=== PATIENT | male | born 1980 | race Caucasian/White ===

== ENCOUNTER 2023-02-18 12:08 | Inpatient (IN) | payer OTHER ==
[2023-02-18 12:33] VITALS: BMI 29.5
[2023-02-18] MEDS ORDERED: NICOTINE POLACRILEX 2 MG GUM BUC PRN (14:05)
[2023-02-18] MEDS ORDERED: DICYCLOMINE HCL 10 MG CAPSULE PO PRN (14:05)
[2023-02-18] MEDS ORDERED: MAG HYDROX/AL HYDROX/SIMETH 30 ML UNIT-DOSE CUP PO PRN (14:05)
[2023-02-18] MEDS ORDERED: IBUPROFEN 600 MG TABLET (FP) PO PRN (14:05)
[2023-02-18] MEDS ORDERED: P-EPHED 60MG/TRIPROLIDI 2.5MG TABLET PO PRN (14:05)
[2023-02-18] MEDS ORDERED: BISMUTH SUBSALICYLATE 262 MG/15 ML BTL PO PRN (14:05)
[2023-02-18] MEDS ORDERED: MAGNESIUM HYDROX 2400MG/30ML ORAL SUSPENSION 30 ML CUP PO PRN (14:05)
[2023-02-18] MEDS ORDERED: METOPROLOL TARTRATE 25 MG TABLET (FP) PO ONE (14:05)
[2023-02-18] MEDS ORDERED: guaiFENesin 600 MG TABLET.ER (FP) PO PRN (14:05)
[2023-02-18] MEDS ORDERED: IBUPROFEN 400 MG TABLET (FP) PO PRN (14:05)
[2023-02-18] MEDS ORDERED: POLYETHYLENE GLYCOL (HEALTHYLAX) 3350 17 GM PACKET PO PRN (14:05)
[2023-02-18] MEDS ORDERED: LOPERAMIDE HCL 2 MG CAPSULE PO PRN (14:05)
[2023-02-18] MEDS ORDERED: BENZONATATE 200 MG CAPSULE PO PRN (14:05)
[2023-02-18] MEDS ORDERED: BENZOCAINE/MENTHOL (CHLORASEPTIC ) LOZENGE MM PRN (14:05)
[2023-02-18] MEDS ORDERED: ONDANSETRON *ODT* 4 MG TABLET SL PRN (14:05)
[2023-02-18] MEDS ORDERED: NICOTINE 10 MG CARTRIDGE (INHALER) IH PRN (14:05)
[2023-02-18] MEDS ORDERED: ACETAMINOPHEN 325 MG TABLET (FP) PO PRN (14:05)
[2023-02-18] MEDS ORDERED: chlordiazePOXIDE HCL 25 MG CAPSULE PO PRN (14:07)
[2023-02-18] MEDS ORDERED: METOPROLOL TARTRATE 25 MG TABLET (FP) ONE (14:44)
[2023-02-18] MEDS ORDERED: chlordiazePOXIDE HCL 25 MG CAPSULE ONE (14:44)
[2023-02-18] MEDS: chlordiazePOXIDE HCL 25 MG CAPSULE PO SCH ×2 (17:27→22:35)
[2023-02-18] MEDS: MELATONIN 5 MG TABLETS PO SCH (22:35)
[2023-02-18] MEDS: THIAMINE HCL 100 MG TABLET (FP) PO SCH (22:35)
[2023-02-19] MEDS: chlordiazePOXIDE HCL 25 MG CAPSULE PO SCH ×4 (05:19→22:08)
[2023-02-19] MEDS: LISINOPRIL 20 MG TABLET PO SCH (10:24)
[2023-02-19] MEDS: PRENATAL VITAMINS W/ FOLIC ACID TABLET (FP) PO SCH (10:24)
[2023-02-19] MEDS: FLUoxetine HCL 20 MG CAPSULE PO SCH (10:24)
[2023-02-19 12:39] LABS: HEMATOCRIT 44.6 % (35.4-49); HEMOGLOBIN 15.5 GM/dL (11.7-16.9); MCH 34.1 pg (25.7-33.7); MCHC 34.7 g/dl (32.0-35.9); MEAN CELL VOLUME 98.3 fl (80-96); MEAN PLT VOLUME 7.4 fl (7.5-11.1); PLATELET COUNT 154 10^3/uL (134-434); RBC 4.53 M/mm3 (4.00-5.60); RDW 14.5 % (11.9-15.9); WHITE BLOOD COUNT 3.9 K/mm3 (4.0-10.0)
[2023-02-19 12:40] LABS: POTASSIUM 4.4 mmol/L (3.5-5.1)
[2023-02-19 12:43] LABS: BLOOD UREA NITROGEN 10.1 mg/dL (7-18); CALCIUM 9.7 mg/dL (8.5-10.1)
[2023-02-19 12:44] LABS: ALBUMIN 3.5 g/dl (3.4-5.0)
[2023-02-19 12:47] LABS: CREATININE 0.8 mg/dL (0.55-1.3)
[2023-02-19 12:49] LABS: BILIRUBIN,TOTAL 0.7 mg/dL (0.2-1)
[2023-02-19] MEDS: hydrOXYzine PAMOATE 25 MG CAPSULE (FP) PO PRN (17:26)
[2023-02-19] MEDS ORDERED: cloNIDine HCL 0.1 MG TABLET PO ONE (21:47)
[2023-02-19] MEDS: THIAMINE HCL 100 MG TABLET (FP) PO SCH (22:08)
[2023-02-19] MEDS: MELATONIN 5 MG TABLETS PO SCH (22:08)
[2023-02-20] MEDS: chlordiazePOXIDE HCL 25 MG CAPSULE PO SCH ×2 (05:33→10:28)
[2023-02-20] MEDS: LISINOPRIL 20 MG TABLET PO SCH (10:28)
[2023-02-20] MEDS: PRENATAL VITAMINS W/ FOLIC ACID TABLET (FP) PO SCH (10:28)
[2023-02-20] MEDS: FLUoxetine HCL 20 MG CAPSULE PO SCH (10:28)
[2023-02-20] MEDS: cloNIDine HCL 0.1 MG TABLET PO PRN ×2 (12:54→18:05)
[2023-02-20] MEDS: hydrOXYzine PAMOATE 25 MG CAPSULE (FP) PO PRN (12:54)
[2023-02-20] MEDS: LORazepam 2 MG TABLET PO SCH ×2 (17:16→22:39)
[2023-02-20] MEDS: THIAMINE HCL 100 MG TABLET (FP) PO SCH (22:39)
[2023-02-20] MEDS: MELATONIN 5 MG TABLETS PO SCH (22:39)
[2023-02-21] MEDS ORDERED: chlordiazePOXIDE HCL 10 MG CAPSULE PO PRN
[2023-02-21] MEDS ORDERED: chlordiazePOXIDE HCL 10 MG CAPSULE PO SCH (05:00)
[2023-02-21] MEDS: LORazepam 1 MG TABLET PO SCH ×4 (05:32→22:06)
[2023-02-21] MEDS: FLUoxetine HCL 20 MG CAPSULE PO SCH (10:12)
[2023-02-21] MEDS: PRENATAL VITAMINS W/ FOLIC ACID TABLET (FP) PO SCH (10:12)
[2023-02-21] MEDS: LISINOPRIL 20 MG TABLET PO SCH (10:12)
[2023-02-21] MEDS: MELATONIN 5 MG TABLETS PO SCH (22:06)
[2023-02-21] MEDS: THIAMINE HCL 100 MG TABLET (FP) PO SCH (22:06)
[2023-02-22] MEDS ORDERED: chlordiazePOXIDE HCL 10 MG CAPSULE PO SCH (05:00)
[2023-02-22] MEDS: LORazepam 0.5 MG TABLET PO SCH ×4 (05:30→22:23)
[2023-02-22] MEDS: hydrOXYzine PAMOATE 25 MG CAPSULE (FP) PO PRN ×2 (10:10→22:25)
[2023-02-22] MEDS: LISINOPRIL 20 MG TABLET PO SCH (10:10)
[2023-02-22] MEDS: PRENATAL VITAMINS W/ FOLIC ACID TABLET (FP) PO SCH (10:10)
[2023-02-22] MEDS: FLUoxetine HCL 20 MG CAPSULE PO SCH (10:10)
[2023-02-22] MEDS: cloNIDine HCL 0.1 MG TABLET PO PRN (10:10)
[2023-02-22] MEDS: MELATONIN 5 MG TABLETS PO SCH (22:23)
[2023-02-22] MEDS: THIAMINE HCL 100 MG TABLET (FP) PO SCH (22:23)
[2023-02-23] MEDS ORDERED: chlordiazePOXIDE HCL 10 MG CAPSULE PO ONE (05:00)
[2023-02-23] MEDS ORDERED: LORazepam 0.5 MG TABLET PO ONE (05:00)
[2023-02-23 09:24] VITALS: BP 121/83; PULSE 101; RESP 20; TEMP 97.5
[2023-02-23] MEDS: LISINOPRIL 20 MG TABLET PO SCH (09:26)
[2023-02-23] MEDS: FLUoxetine HCL 20 MG CAPSULE PO SCH (09:26)
[2023-02-23] MEDS: PRENATAL VITAMINS W/ FOLIC ACID TABLET (FP) PO SCH (09:26)
== END 2023-02-23 09:46 | disposition home or self-care (01) | DRG 775 ==
LOC: YASAS 12:08 → Y6N 14:14
PROVIDERS: ADMIT Allergy & Immunology; ATTEND Surgery
PROC: HZ2ZZZZ Detoxification Services for Substance Abuse Treatment (ICD-10-PCS; principal; 2023-02-18)
DX: F10.230 Alcohol dependence with withdrawal, uncomplicated (principal); F17.213 Nicotine dependence, cigarettes, with withdrawal; F32.A Depression, unspecified; I10 Essential (primary) hypertension; R74.01 Elevation of levels of liver transaminase levels; Z86.59 Personal history of other mental and behavioral disorders
CPT/HCPCS: 36415; 80053; 83036; 84450; 85027; 86780; 87635; 87811

== ENCOUNTER 2023-08-31 22:01 | Inpatient (IN) | payer OTHER ==
[2023-08-31 22:31] VITALS: BMI 27.3
[2023-08-31] MEDS ORDERED: POLYETHYLENE GLYCOL (HEALTHYLAX) 3350 17 GM PACKET PO PRN (22:52)
[2023-08-31] MEDS ORDERED: ACETAMINOPHEN 325 MG TABLET (FP) PO PRN (22:52)
[2023-08-31] MEDS ORDERED: guaiFENesin 600 MG TABLET.ER (FP) PO PRN (22:52)
[2023-08-31] MEDS ORDERED: METOPROLOL TARTRATE 25 MG TABLET (FP) PO ONE (22:52)
[2023-08-31] MEDS ORDERED: NICOTINE POLACRILEX 2 MG LOZENGE BC PRN (22:52)
[2023-08-31] MEDS ORDERED: BENZONATATE 200 MG CAPSULE PO PRN (22:52)
[2023-08-31] MEDS ORDERED: BENZOCAINE/MENTHOL (CHLORASEPTIC ) LOZENGE MM PRN (22:52)
[2023-08-31] MEDS ORDERED: LOPERAMIDE HCL 2 MG CAPSULE PO PRN (22:52)
[2023-08-31] MEDS ORDERED: MAGNESIUM HYDROX 2400MG/30ML ORAL SUSPENSION 30 ML CUP PO PRN (22:52)
[2023-08-31] MEDS ORDERED: P-EPHED 60MG/TRIPROLIDI 2.5MG TABLET PO PRN (22:52)
[2023-08-31] MEDS ORDERED: ONDANSETRON *ODT* 4 MG TABLET SL PRN (22:52)
[2023-08-31] MEDS ORDERED: IBUPROFEN 400 MG TABLET (FP) PO PRN (22:52)
[2023-08-31] MEDS ORDERED: DICYCLOMINE HCL 10 MG CAPSULE PO PRN (22:52)
[2023-08-31] MEDS ORDERED: MAG HYDROX/AL HYDROX/SIMETH 30 ML UNIT-DOSE CUP PO PRN (22:52)
[2023-08-31] MEDS ORDERED: IBUPROFEN 600 MG TABLET (FP) PO PRN (22:52)
[2023-08-31] MEDS ORDERED: BISMUTH SUBSALICYLATE 524 MG/30 ML PO PRN (22:52)
[2023-09-01] MEDS ORDERED: METOPROLOL TARTRATE 25 MG TABLET (FP) ONE (00:30)
[2023-09-01] MEDS: PRENATAL VITAMINS W/ FOLIC ACID TABLET (FP) PO SCH (10:08)
[2023-09-01 11:48] LABS: HEMATOCRIT 36.2 % (35.4-49); HEMOGLOBIN 12.7 GM/dL (11.7-16.9); MCH 32.8 pg (25.7-33.7); MCHC 35.1 g/dl (32.0-35.9); MEAN CELL VOLUME 93.4 fl (80-96); MEAN PLT VOLUME 6.6 fl (7.5-11.1); PLATELET COUNT 244 10^3/uL (134-434); RBC 3.87 M/mm3 (4.00-5.60); RDW 13.7 % (11.9-15.9); WHITE BLOOD COUNT 7.4 K/mm3 (4.0-10.0)
[2023-09-01] MEDS: chlordiazePOXIDE HCL 25 MG CAPSULE PO SCH ×4 (11:55→22:14)
[2023-09-01] MEDS: hydrOXYzine PAMOATE 25 MG CAPSULE (FP) PO PRN ×2 (11:55→22:16)
[2023-09-01 12:22] LABS: POTASSIUM 3.5 mmol/L (3.5-5.1)
[2023-09-01 12:28] LABS: ALBUMIN 2.9 g/dl (3.4-5.0); BLOOD UREA NITROGEN 12.8 mg/dL (7-18); CALCIUM 7.8 mg/dL (8.5-10.1)
[2023-09-01 12:31] LABS: CREATININE 0.6 mg/dL (0.55-1.3)
[2023-09-01 12:33] LABS: BILIRUBIN,TOTAL 0.3 mg/dL (0.2-1); TOT PROT 6.1 g/dl (6.4-8.2)
[2023-09-01] MEDS ORDERED: amLODIPine BESYLATE 10 MG TABLET (FP) PO ONE (13:31)
[2023-09-01] MEDS ORDERED: LISINOPRIL 20 MG TABLET PO ONE (13:31)
[2023-09-01] MEDS: ACAMPROSATE CALCIUM 333 MG TABLET.DR PO SCH ×2 (14:01→22:14)
[2023-09-01] MEDS ORDERED: VENLAFAXINE HCL 75 MG TABLET PO ONE (14:21)
[2023-09-01] MEDS ORDERED: VENLAFAXINE HCL 75 MG E.R. CAPSULES PO ONE (14:42)
[2023-09-01] MEDS: METHOCARBAMOL 500 MG TABLET PO PRN (14:42)
[2023-09-01] MEDS: chlordiazePOXIDE HCL 25 MG CAPSULE PO PRN (14:42)
[2023-09-01] MEDS: THIAMINE HCL 100 MG TABLET (FP) PO SCH (22:14)
[2023-09-01] MEDS: MELATONIN 5 MG TABLETS PO SCH (22:15)
[2023-09-02] MEDS: ACAMPROSATE CALCIUM 333 MG TABLET.DR PO SCH ×3 (05:39→22:23)
[2023-09-02] MEDS: chlordiazePOXIDE HCL 25 MG CAPSULE PO SCH ×4 (05:40→22:23)
[2023-09-02] MEDS ORDERED: LISINOPRIL 20 MG TABLET PO SCH (10:00)
[2023-09-02] MEDS: PRENATAL VITAMINS W/ FOLIC ACID TABLET (FP) PO SCH (10:26)
[2023-09-02] MEDS: VENLAFAXINE HCL 75 MG E.R. CAPSULES PO SCH (10:26)
[2023-09-02] MEDS: amLODIPine BESYLATE 10 MG TABLET (FP) PO SCH (10:26)
[2023-09-02] MEDS: METHOCARBAMOL 500 MG TABLET PO PRN (22:23)
[2023-09-02] MEDS: THIAMINE HCL 100 MG TABLET (FP) PO SCH (22:23)
[2023-09-02] MEDS: MELATONIN 5 MG TABLETS PO SCH (22:23)
[2023-09-02] MEDS: hydrOXYzine PAMOATE 25 MG CAPSULE (FP) PO PRN (22:24)
[2023-09-03] MEDS: chlordiazePOXIDE HCL 25 MG CAPSULE PO SCH ×4 (05:57→22:26)
[2023-09-03] MEDS: ACAMPROSATE CALCIUM 333 MG TABLET.DR PO SCH ×3 (05:57→22:26)
[2023-09-03] MEDS: VENLAFAXINE HCL 75 MG E.R. CAPSULES PO SCH (10:18)
[2023-09-03] MEDS: amLODIPine BESYLATE 10 MG TABLET (FP) PO SCH (10:18)
[2023-09-03] MEDS: PRENATAL VITAMINS W/ FOLIC ACID TABLET (FP) PO SCH (10:19)
[2023-09-03] MEDS: chlordiazePOXIDE HCL 25 MG CAPSULE PO PRN (14:20)
[2023-09-03] MEDS: THIAMINE HCL 100 MG TABLET (FP) PO SCH (22:26)
[2023-09-03] MEDS: hydrOXYzine PAMOATE 25 MG CAPSULE (FP) PO PRN (22:26)
[2023-09-03] MEDS: METHOCARBAMOL 500 MG TABLET PO PRN (22:27)
[2023-09-03] MEDS: MELATONIN 5 MG TABLETS PO SCH (22:27)
[2023-09-04] MEDS ORDERED: chlordiazePOXIDE HCL 10 MG CAPSULE PO PRN
[2023-09-04] MEDS: chlordiazePOXIDE HCL 10 MG CAPSULE PO SCH ×4 (05:26→23:02)
[2023-09-04] MEDS: ACAMPROSATE CALCIUM 333 MG TABLET.DR PO SCH ×3 (05:26→22:10)
[2023-09-04] MEDS: VENLAFAXINE HCL 75 MG E.R. CAPSULES PO SCH (10:15)
[2023-09-04] MEDS: PRENATAL VITAMINS W/ FOLIC ACID TABLET (FP) PO SCH (10:16)
[2023-09-04] MEDS: amLODIPine BESYLATE 10 MG TABLET (FP) PO SCH (10:17)
[2023-09-04] MEDS: MELATONIN 5 MG TABLETS PO SCH (22:10)
[2023-09-04] MEDS: THIAMINE HCL 100 MG TABLET (FP) PO SCH (22:11)
[2023-09-04] MEDS: METHOCARBAMOL 500 MG TABLET PO PRN (22:12)
[2023-09-05] MEDS: ACAMPROSATE CALCIUM 333 MG TABLET.DR PO SCH ×3 (05:31→21:54)
[2023-09-05] MEDS: chlordiazePOXIDE HCL 10 MG CAPSULE PO SCH ×2 (05:31→17:30)
[2023-09-05] MEDS: PRENATAL VITAMINS W/ FOLIC ACID TABLET (FP) PO SCH (10:16)
[2023-09-05] MEDS: amLODIPine BESYLATE 10 MG TABLET (FP) PO SCH (10:16)
[2023-09-05] MEDS: VENLAFAXINE HCL 75 MG E.R. CAPSULES PO SCH (10:16)
[2023-09-05] MEDS: hydrOXYzine PAMOATE 25 MG CAPSULE (FP) PO PRN ×2 (13:48→21:55)
[2023-09-05] MEDS: METHOCARBAMOL 500 MG TABLET PO PRN ×2 (13:48→21:54)
[2023-09-05] MEDS: THIAMINE HCL 100 MG TABLET (FP) PO SCH (21:54)
[2023-09-05] MEDS: MELATONIN 5 MG TABLETS PO SCH (21:54)
[2023-09-06] MEDS ORDERED: chlordiazePOXIDE HCL 10 MG CAPSULE PO ONE (05:00)
[2023-09-06] MEDS: ACAMPROSATE CALCIUM 333 MG TABLET.DR PO SCH ×2 (05:28→13:22)
[2023-09-06] MEDS: VENLAFAXINE HCL 75 MG E.R. CAPSULES PO SCH (10:02)
[2023-09-06] MEDS: amLODIPine BESYLATE 10 MG TABLET (FP) PO SCH (10:02)
[2023-09-06] MEDS: PRENATAL VITAMINS W/ FOLIC ACID TABLET (FP) PO SCH (10:03)
[2023-09-06 13:20] VITALS: BP 115/72; PULSE 96; RESP 17; TEMP 97.5
== END 2023-09-06 14:04 | disposition other institution (70) | DRG 775 ==
LOC: YASAS 22:01 → Y3N 09-01 00:59
PROVIDERS: ADMIT Allergy & Immunology; ATTEND Surgery
PROC: HZ2ZZZZ Detoxification Services for Substance Abuse Treatment (ICD-10-PCS; principal; 2023-09-01)
DX: F10.230 Alcohol dependence with withdrawal, uncomplicated (principal); F12.10 Cannabis abuse, uncomplicated; F17.210 Nicotine dependence, cigarettes, uncomplicated; F19.24 Other psychoactive substance dependence with psychoactive substance-induced mood disorder; F32.A Depression, unspecified; G47.00 Insomnia, unspecified; I10 Essential (primary) hypertension
CPT/HCPCS: 36415; 80053; 80307; 83036; 85027; 86780; 87635; 87811; Q0162